=== PATIENT | female | born 1960 ===

== ENCOUNTER 2020-10-17 19:30 | Emergency (ER) | payer BC, OTHER ==
[~2020-10-17] VITALS: Ht 162.6 cm; Wt 70.8 kg
--- NOTE | 2020-10-17 19:33 | NUR ---
BIBA FOR LLQ AND LEFT FLANK PAIN STARTING TODAY. ALSO C/O LEFT SIDED VAGINAL PAIN AND NAUSEA. PT DENIES ANY ABD HX AND SURGERIES IN PAST. EMS PLACED 20 RIGHT AC PIV AND GAVE 4 MG ZOFRAN. HX OF GERD AND "SWOLLEN VOICE BOX".
[2020-10-17] MEDS ORDERED: MORPHINE SULFATE 4 MG/ML, 1ML ONE (19:44)
[2020-10-17] MEDS ORDERED: KETOROLAC 30 MG/1 ML ONE (19:52)
[2020-10-17] MEDS ORDERED: PROMETHAZINE 25 MG/ML, 1ML ONE (19:52)
[2020-10-17] MEDS ORDERED: SODIUM CHLORIDE 0.9% 1,000ML IVBOLUS ONE (20:00)
[2020-10-17] MEDS ORDERED: ONDANSETRON 2MG/ML, 2ML IVPush ONE (20:00)
[2020-10-17] MEDS ORDERED: MORPHINE SULFATE 4 MG/ML, 1ML IVPush PRN (20:00)
[2020-10-17] MEDS ORDERED: SODIUM CHLORIDE FLUSH 10ML SYR IVF ONE (20:00)
[2020-10-17] MEDS ORDERED: KETOROLAC 30 MG/1 ML IVPush ONE (20:00)
[2020-10-17] MEDS ORDERED: PROMETHAZINE 25 MG/ML, 1ML IM ONE (20:00)
[2020-10-17] MEDS ORDERED: LORazepam 2 MG/ML, 1ML IVPush ONE (20:00)
[2020-10-17 20:25] LABS: MICROSCOPIC INDICATED
--- NOTE | 2020-10-17 20:28 | NUR ---
PT REPORTS RELIEF FROM PAIN, STATES SHE MUCH MORE COMFORTABLE NOW. FRIEND AT BEDSIDE
[2020-10-17 20:36] LABS: BASOPHILS % (AUTO) 1 % (0-1); EOSINOPHILS % (AUTO) 2 % (1-7); LYMPHOCYTES % (AUTO) 12 % (22-44); MEAN CORPUSCULAR HEMOGLOBIN 30.3 pg (27.0-34.8); MEAN CORPUSCULAR HGB CONC 33.9 g/dL (32.4-35.8); MEAN PLATELET VOLUME 7.8 fL (7.4-10.4); MONOCYTES % (AUTO) 4 % (2-9); NEUTROPHILS % (AUTO) 81 % (42-75); PLATELET COUNT 330 x10^3/uL (130-400); RED BLOOD COUNT 4.46 x10^6/uL (3.82-5.3); RED CELL DISTRIBUTION WIDTH 12.9 % (9.6-15.2)
[2020-10-17 20:42] LABS: MD NO
[2020-10-17 20:44] LABS: ALANINE AMINOTRANSFERASE 28 U/L (12-78); ALBUMIN 4.2 g/dL (3.4-5.0); ANION GAP 8 mmol/L (5-15); CALCIUM 9.1 mg/dL (8.5-10.1); CHLORIDE 109 mmol/L (98-107); CREATININE 1.04 mg/dL (0.55-1.02)
--- NOTE | 2020-10-17 20:45 | NUR ---
CT PENDING CREATINE.
[2020-10-17 20:46] LABS: ALKALINE PHOSPHATASE 73 U/L (45-117); BILIRUBIN,TOTAL 0.5 mg/dL (0.2-1.0); TOTAL PROTEIN 8.1 g/dL (6.4-8.2)
--- NOTE | 2020-10-17 20:56 | NUR ---
CT DELAY- PT NEED MEDS BEFORE GOING TO CT.
[2020-10-17] MEDS ORDERED: LORazepam 2 MG/ML, 1ML ONE (21:06)
[2020-10-17] MEDS ORDERED: OMNIPAQUE 350 MG/ML, 100ML BOTTLE ONE (21:37)
--- NOTE | 2020-10-17 21:42 | NUR ---
PT FOUND TO BE 85% RA, PLACED ON 2 L NC, NOW 96%
[2020-10-17 22:35] VITALS: BP 134/77
== END 2020-10-17 22:37 | disposition home or self-care (01) ==
LOC: ED 20:29
DX: R10.32 Left lower quadrant pain (principal); N13.2 Hydronephrosis with renal and ureteral calculous obstruction; N13.4 Hydroureter; K80.70 Calculus of gallbladder and bile duct without cholecystitis without obstruction
CPT/HCPCS: 36415; 74177; 80053; 81001; 83690; 85025; 96361; 96372; 96374; 96375; 99285; J1885; J2060; J2550; J7030; Q9967